=== PATIENT | female | born 1985 | race Caucasian/White ===

== ENCOUNTER 2017-01-13 21:10 | Emergency (ER) | payer MEDICAID ==
[~2017-01-13] VITALS: Ht 162.6 cm; Wt 59.0 kg
[2017-01-13 21:37] VITALS: BP 145/96
[2017-01-13] MEDS ORDERED: TdaP Vaccine 0.5ml Syr IM ONE ×2 (21:38→21:45)
[2017-01-13] MEDS ORDERED: AUGMENTIN 875-1 EAC1 ORAL (21:43)
--- NOTE | 2017-01-13 21:44 | Emergency Room Report ---
History of Present Illness General Chief Complaint: Animal Bite Source: Patient Present Illness HPI Is a 31-year-old female who presents with possible infection from dog bite. She was bit by a friend's dog a week ago. She did not go to the ER. She been keeping it clean but not covered. Now she presents with the redness around the wound. There is also a black ebony on it. Denies any other trauma. The family dog is not sick. His shots up-to-date. No bleeding or pain in the Allergies: Coded Allergies: No Known Allergies (Unverified , 01/13/17) Patient History Past Medical History: see triage record, old chart reviewed Past Surgical History: none Pertinent Family History: none Last Menstrual Period: 12/31/16 Now: No : 4 Para: 2 Immunizations: other Reviewed Nursing Documentation: PMH: Agreed, PSxH: Agreed Nursing Documentation-PMH Past Medical History: No Stated History Review of Systems Eye: Denies: blurred vision, eye pain ENT: Denies: ear pain, nose congestion, throat swelling Respiratory: Denies: cough, shortness of breath Cardiovascular: Denies: chest pain, palpitations Gastrointestinal: Denies: abdominal pain, diarrhea, nausea, vomiting Musculoskeletal: Denies: back pain, joint pain Skin: Denies: rash Neurological: Denies: headache, numbness Endocrine: Denies: increased thirst, increased urine Hematologic/Lymphatic: Denies: easy bruising All Other Systems: negative except mentioned in HPI Physical Exam Vital Signs Date Time Temp Pulse Resp B/P Pulse Ox O2 Delivery O2 Flow Rate FiO2 01/13/17 21:21 97.9 91 16 145/96 95 Room Air vitals normal Sp02 EP Interpretation: reviewed, normal General Appearance: well appearing, no apparent distress, alert Head: normocephalic, atraumatic Eyes: bilateral eye EOMI, bilateral eye PERRL ENT: hearing grossly normal, normal pharynx Neck: full range of motion, supple, no meningismus Respiratory: chest non-tender, lungs clear, normal breath sounds Cardiovascular #1: regular rate, rhythm, no murmur Gastrointestinal: normal bowel sounds, non tender, no mass, no organomegaly, no bruit, non-distended Musculoskeletal: back normal, gait/station normal, normal range of motion, other - Left lower extremity: There is a wound measuring about 2 cm. It is gaping with an eschar. There is a small surrounding erythema. No abscess. No crepitus. Sensation normal. Is localized to be in her aspect of the lower extremity about 5 cm above the ankle. Psychiatric: mood/affect normal Skin: warm/dry Medical Decision Making Diagnostic Impression: Primary Impression: Dog bite of left lower leg with infection Qualified Codes: S81.852A - Open bite, left lower leg, initial encounter; L08.9 - Local infection of the skin and subcutaneous tissue, unspecified; W54.0XXA - Bitten by dog, initial encounter ER Course Patient with a dog bite does about a week ago. They may be some small surrounding cellulitis. I told patient that the scab/ eschar will fall off. No evidence of deep infection. No evidence of necrotizing fasciitis. We'll discharge home. Last Vital Signs Date Time Temp Pulse Resp B/P Pulse Ox O2 Delivery O2 Flow Rate FiO2 01/13/17 21:21 97.9 91 16 145/96 95 Room Air Status: improved Disposition: HOME, SELF-CARE Condition: Stable Scripts Amoxicillin/Potassium Clav 875-125* (AUGMENTIN 875-125 TABLET*) 1 Each Tablet 1 TAB ORAL TWICE A DAY, #14 TAB Prov: AMANDA LEIVA M.D. 01/13/17 Patient Instructions: Animal Bite Additional Instructions: Keep wound clean. Cover wound. Follow up with your 7 days. Return if symptom worsen. AMANDA LEIVA M.D. Jan 13, 2017 21:44
[2017-01-13 21:55] VITALS: BP 145/96
== END 2017-01-13 22:00 | disposition home or self-care (01) ==
LOC: EMR 21:40
DX: S81.852A Open bite, left lower leg, initial encounter (principal); L08.9 Local infection of the skin and subcutaneous tissue, unspecified; W54.0XXA Bitten by dog, initial encounter; Y92.9 Unspecified place or not applicable; Z23 Encounter for immunization
CPT/HCPCS: 90471; 90715; 99283